=== PATIENT | male | born 1985 | race African-American/Black ===

== ENCOUNTER 2017-10-07 12:57 | Emergency (ER) | payer MEDICAID, OTHER ==
[~2017-10-07] VITALS: Ht 167.6 cm; Wt 79.0 kg
[2017-10-07 13:15] VITALS: BP 134/86
[2017-10-07] MEDS ORDERED: ACETAMINOPHEN 325MG TABLET PO ONE (15:15)
[2017-10-07] MEDS ORDERED: BACITRACIN ZINC OINT UDPKT TOP ONE (15:15)
== END 2017-10-07 15:31 | disposition home or self-care (01) ==
LOC: ER 13:27
DX: Z48.02 Encounter for removal of sutures (principal); J45.909 Unspecified asthma, uncomplicated; Z88.6 Allergy status to analgesic agent; X58.XXXD Exposure to other specified factors, subsequent encounter
CPT/HCPCS: 99283

== ENCOUNTER 2018-05-07 09:57 | Emergency (ER) | payer MEDICAID ==
[~2018-05-07] VITALS: Ht 167.6 cm; Wt 80.0 kg
[2018-05-07 11:02] VITALS: BP 126/72
[2018-05-07] MEDS ORDERED: ACETAMINOPHEN 325MG TABLET PO ONE (11:30)
== END 2018-05-07 12:55 | disposition home or self-care (01) ==
LOC: ER 12:51
DX: S63.591A Other specified sprain of right wrist, initial encounter (principal); H20.9 Unspecified iridocyclitis; H53.142 Visual discomfort, left eye; J45.909 Unspecified asthma, uncomplicated; Z88.6 Allergy status to analgesic agent; V00.131A Fall from skateboard, initial encounter; Y93.51 Activity, roller skating (inline) and skateboarding; Y92.89 Other specified places as the place of occurrence of the external cause; Y99.8 Other external cause status
CPT/HCPCS: 29125; 73130; 99284

== ENCOUNTER 2018-05-09 07:07 | Emergency (ER) | payer MEDICAID ==
[~2018-05-09] VITALS: Ht 170.2 cm; Wt 78.0 kg
[2018-05-09] MEDS ORDERED: ACETAMINOPHEN 325MG TABLET PO ONE (08:15)
[2018-05-09 09:58] VITALS: BP 135/88
== END 2018-05-09 10:05 | disposition home or self-care (01) ==
LOC: ER 08:40
DX: S90.31XA Contusion of right foot, initial encounter (principal); J45.909 Unspecified asthma, uncomplicated; V00.131A Fall from skateboard, initial encounter; Y93.89 Activity, other specified; Y92.89 Other specified places as the place of occurrence of the external cause; Y99.8 Other external cause status; Z88.6 Allergy status to analgesic agent
CPT/HCPCS: 73630; 99284

== ENCOUNTER 2019-09-21 08:58 | Emergency (ER) | payer MEDICAID ==
[~2019-09-21] VITALS: Ht 167.6 cm; Wt 81.0 kg
[2019-09-21] MEDS ORDERED: ACETAMINOPHEN 500MG TABLET PO ONE (10:30)
[2019-09-21 11:35] VITALS: BP 135/87
== END 2019-09-21 11:41 | disposition home or self-care (01) ==
LOC: ER 08:58
DX: S62.001A Unspecified fracture of navicular [scaphoid] bone of right wrist, initial encounter for closed fracture (principal); J45.909 Unspecified asthma, uncomplicated; W22.8XXA Striking against or struck by other objects, initial encounter; Y93.89 Activity, other specified; Y92.89 Other specified places as the place of occurrence of the external cause; Y99.8 Other external cause status; Z88.6 Allergy status to analgesic agent
CPT/HCPCS: 29125; 73130; 99283

== ENCOUNTER 2024-03-29 08:42 | Inpatient (IN) | payer MEDICAID ==
[~2024-03-29] VITALS: Ht 170.2 cm; Wt 78.0 kg
[2024-03-29 09:50] LABS: BASOPHILS % 0.7 % (0.0-2.0); EOSINOPHILS % 0.6 % (0.0-5.0); HEMATOCRIT. 43.1 % (42.0-52.0); HEMOGLOBIN. 14.9 g/dL (14.0-18.0); LYMPHOCYTES % 26.3 % (20.0-50.0); MEAN CORPUSCULAR HGB CONC 34.6 g/dL (31.0-37.0); MEAN CORPUSCULAR VOLUME 92.4 fL (80.0-94.0); MEAN PLATELET VOLUME 8.5 fl (7.4-10.4); MONOCYTES % 9.1 % (2.0-8.0); NEUTROPHILS % 63.3 % (40.0-76.0); PLATELET 161 x1000/uL (130-400); RED BLOOD CELL COUNT 4.66 mill/uL (4.7-6.1); RED CELL DISTRIBUTION WIDTH 12.5 % (11.6-14.6); WHITE BLOOD COUNT 3.4 x1000/uL (4.5-11.0)
[2024-03-29 09:58] LABS: CHLORIDE 99 mEq/L (98-107); POTASSIUM 3.6 mEq/L (3.5-5.1); SODIUM 137 mEq/L (136-145)
[2024-03-29 09:59] LABS: CARBON DIOXIDE 27 mEq/L (21-32); PROTHROMBIN TIME 11.4 sec (9.6-11.0)
[2024-03-29 10:00] LABS: CALCIUM 9.6 mg/dL (8.7-10.4)
[2024-03-29 10:04] LABS: CREATININE 0.8 mg/dL (0.6-1.3)
[2024-03-29 10:05] LABS: GLUCOSE 89 mg/dL (70-105); LACTIC ACID 3.3 mmol/L (0.4-2.0); UREA NITROGEN BLOOD 8 mg/dL (9-23)
[2024-03-29 10:06] LABS: ALANINE AMINOTRANSFERASE 76 IU/L (10-49); ALBUMIN 4.8 g/dL (3.2-4.8); ASPARTATE AMINOTRANSFERASE 128 IU/L (<34)
[2024-03-29 10:07] LABS: BILIRUBIN DIRECT 0.3 mg/dL (<=3.0); BILIRUBIN TOTAL 1.1 mg/dL (0.1-1.0); PROTEIN TOTAL 8.2 g/dL (6.0-8.3)
[2024-03-29 10:08] LABS: TROPONIN I HIGH SENSITIVITY < 4 ng/L (3.0-53)
[2024-03-29] MEDS: SODIUM CHLORIDE 0.9% 1000ML BAG (SEPSIS BOLUS) IV ONE (10:19)
[2024-03-29] MEDS: PIPERACILLIN/TAZO 3.375G/50ML 50 ML IV ONE (10:19)
[2024-03-29] MEDS: LORAZEPAM 2MG/ML INJ IV ONE ×2 (10:25→11:35)
[2024-03-29] MEDS: VANCOMYCIN 1G PREMIX 200 ML IV ONE (10:33)
[2024-03-29] MEDS ORDERED: DEXTROSE 50% WATER 50ML SYRINGE IV PRN (14:15)
[2024-03-29] MEDS ORDERED: ACETAMINOPHEN 325MG TABLET PO PRN (14:15)
[2024-03-29] MEDS ORDERED: IPRATROPIUM/ALBUTEROL 0.5-3(2.5)MG/3ML NEB HHN PRN (14:15)
[2024-03-29] MEDS: SODIUM CHLORIDE 0.9% 1,000 ML IV SCH (14:23)
[2024-03-29] MEDS ORDERED: LORAZEPAM 2MG/ML INJ IV PRN (14:45)
[2024-03-29] MEDS ORDERED: AMIODARONE HCL 900 MG in DEXT 5% WATER 500 ML IV PRN (14:45)
[2024-03-29] MEDS: FOLIC ACID 1 MG, THIAMINE HCL 100 MG, MVI, ADULT NO.1 10 ML in DEXTROSE 5% WATER 1,000 ML IV ONE (16:30)
[2024-03-29] MEDS: BLOOD SUGAR DIAGNOSTIC STRIP TEST SCH (17:51)
[2024-03-29] MEDS ORDERED: METRONIDAZOLE 500 MG PREMIX 100 ML IV SCH (18:00)
[2024-03-29 18:27] LABS: HEPATITIS B SURFACE ANTIGEN NEGATIVE (Negative)
[2024-03-29 18:48] LABS: HEPATITIS A AB IGM NEGATIVE (Negative); HEPATITIS B CORE AB IGM NEGATIVE (Negative)
[2024-03-29 18:49] LABS: HEPATITIS C AB NON REACTIVE (Neg) (Negative)
[2024-03-29] MEDS: CEFTRIAXONE 1GM/50ML 50 ML IV SCH (19:01)
[2024-03-29 20:00] VITALS: BP 136/84; RESP 16; TEMP 36.78072; O2SAT 100
[2024-03-29 22:01] LABS: HEMATOCRIT 38.8 % (42.0-52.0); HEMOGLOBIN 12.8 g/dL (14.0-18.0)
[2024-03-30 01:10] VITALS: BP 132/87; PULSE 88; RESP 19; TEMP 37.0296
[2024-03-30 02:03] LABS: CREATINE KINASE 506 IU/L (46-171)
[2024-03-30 02:04] LABS: CREATINE KINASE MB FRACTION 11.9 ng/mL (0.5-3.6); TROPONIN I HIGH SENSITIVITY 5 ng/L (3.0-53)
[2024-03-30] MEDS: METRONIDAZOLE 500 MG PREMIX 100 ML IV SCH (02:45)
[2024-03-30 07:42] LABS: BASOPHILS % 0.7 % (0.0-2.0); EOSINOPHILS % 1.4 % (0.0-5.0); HEMATOCRIT. 38.9 % (42.0-52.0); HEMOGLOBIN. 13.1 g/dL (14.0-18.0); LYMPHOCYTES % 24.3 % (20.0-50.0); MEAN CORPUSCULAR HEMOGLOBIN 31.2 pg (28.0-32.0); MEAN CORPUSCULAR HGB CONC 33.6 g/dL (31.0-37.0); MEAN CORPUSCULAR VOLUME 92.9 fL (80.0-94.0); MEAN PLATELET VOLUME 9.1 fl (7.4-10.4); MONOCYTES % 9.8 % (2.0-8.0); NEUTROPHILS % 63.8 % (40.0-76.0); PLATELET 139 x1000/uL (130-400); RED BLOOD CELL COUNT 4.19 mill/uL (4.7-6.1); RED CELL DISTRIBUTION WIDTH 12.1 % (11.6-14.6); WHITE BLOOD COUNT 3.8 x1000/uL (4.5-11.0)
[2024-03-30 08:00] VITALS: BP 119/73; PULSE 90; RESP 16; TEMP 36.78072; O2SAT 96
[2024-03-30 08:02] LABS: CARBON DIOXIDE 27 mEq/L (21-32); CHLORIDE 100 mEq/L (98-107); SODIUM 135 mEq/L (136-145)
[2024-03-30 08:03] LABS: CALCIUM 8.7 mg/dL (8.7-10.4)
[2024-03-30 08:05] LABS: CREATINE KINASE MB FRACTION 12.7 ng/mL (0.5-3.6)
[2024-03-30 08:06] LABS: ALANINE AMINOTRANSFERASE 49 IU/L (10-49); T4 FREE 1.46 ng/dL (0.89-1.76)
[2024-03-30 08:07] LABS: ALBUMIN 4.2 g/dL (3.2-4.8); BILIRUBIN DIRECT 0.5 mg/dL (<=3.0); THYROID STIMULATING HORMONE 2.66 uIU/mL (0.55-4.78)
[2024-03-30 08:08] LABS: ASPARTATE AMINOTRANSFERASE 75 IU/L (<34); BILIRUBIN TOTAL 1.8 mg/dL (0.1-1.0); CREATININE 0.8 mg/dL (0.6-1.3); GLUCOSE 83 mg/dL (70-105); TRIGLYCERIDE 103 mg/dL (0-150); UREA NITROGEN BLOOD 6 mg/dL (9-23)
[2024-03-30 08:09] LABS: CHOLESTEROL 244 mg/dL (<200); LDL CHOLESTEROL 183 mg/dL (5-100)
[2024-03-30 08:10] LABS: HDL CHOLESTEROL 55 mg/dL (>55)
[2024-03-30] MEDS: FOLIC ACID 1MG TABLET PO SCH (08:52)
[2024-03-30] MEDS: THIAMINE HCL 100MG TABLET PO SCH (08:52)
[2024-03-30] MEDS: PANTOPRAZOLE SODIUM 40 MG/VIAL IV SCH (09:06)
[2024-03-30] MEDS: ASPIRIN 81MG TABLET PO SCH (09:27)
[2024-03-30] MEDS: POTASSIUM CHLORIDE 40 MEQ in DEXT 5% WATER 250 ML IV ONE (10:47)
[2024-03-30 12:00] VITALS: BP 145/84; PULSE 93; RESP 20; TEMP 36.3918; O2SAT 99
[2024-03-30 13:37] LABS: HEMATOCRIT 39.6 % (42.0-52.0); HEMOGLOBIN 12.8 g/dL (14.0-18.0)
[2024-03-30 14:34] LABS: CLARITY URINE CLEAR (CLEAR); COLOR URINE YELLOW (YELLOW); GLUCOSE URINE NEGATIVE (NEGATIVE); KETONES URINE NEGATIVE (NEGATIVE); LEUKOCYTE ESTERASE URINE NEGATIVE (NEGATIVE); NITRITE URINE NEGATIVE (NEGATIVE); OCCULT BLOOD URINE NEGATIVE (NEGATIVE); PROTEIN URINE NEGATIVE (NEGATIVE); SPECIFIC GRAVITY URINE 1.007 (1.005-1.030)
[2024-03-30 14:48] LABS: T4 FREE 1.29 ng/dL (0.89-1.76)
[2024-03-30 15:15] LABS: *AMPHETAMINES SCREEN URINE NEGATIVE (NEGATIVE); *BARBITURATES SCREEN URINE NEGATIVE (NEGATIVE); *BENZODIAZEPINES SCREEN URINE NEGATIVE (NEGATIVE); *COCAINE SCREEN URINE NEGATIVE (NEGATIVE); METHADONE URINE SCREEN NEGATIVE (NEGATIVE); OPIATES URINE SCREEN NEGATIVE (NEGATIVE)
[2024-03-30 15:16] LABS: CANNABINOID URINE SCREEN PRESUMPTIVE POSITIVE (NEGATIVE); ECSTASY MDMA SCREEN URINE NEGATIVE (NEGATIVE); PHENCYCLIDINE URINE SCREEN NEGATIVE (NEGATIVE)
[2024-03-30 16:00] VITALS: BP 138/70; PULSE 90; RESP 19; TEMP 36.61404; O2SAT 98
[2024-03-30 17:33] LABS: CREATINE KINASE 411 IU/L (46-171)
[2024-03-30 17:34] LABS: CREATINE KINASE MB FRACTION 10.3 ng/mL (0.5-3.6)
[2024-03-30 17:43] LABS: TROPONIN I HIGH SENSITIVITY < 4 ng/L (3.0-53)
[2024-03-30 20:00] VITALS: BP 133/95; PULSE 85; RESP 18; TEMP 36.72516; O2SAT 99
[2024-03-31] VITALS: BP 147/95; PULSE 68; RESP 19; TEMP 36.9474; O2SAT 97
[2024-03-31 00:24] LABS: CREATINE KINASE 385 IU/L (46-171)
[2024-03-31 00:36] LABS: TROPONIN I HIGH SENSITIVITY < 4 ng/L (3.0-53)
[2024-03-31 04:00] VITALS: BP 137/76; PULSE 79; RESP 19; TEMP 36.22512; O2SAT 99
[2024-03-31 08:00] VITALS: BP 147/98; PULSE 85; RESP 18; TEMP 36.28068; O2SAT 100
[2024-03-31 08:58] VITALS: BP 147/98; PULSE 85; TEMP 97.3; O2SAT 100
[2024-03-31 11:47] LABS: CHLORIDE 98 mEq/L (98-107); POTASSIUM 3.6 mEq/L (3.5-5.1); SODIUM 135 mEq/L (136-145)
[2024-03-31 11:48] LABS: CARBON DIOXIDE 28 mEq/L (21-32)
[2024-03-31 11:51] LABS: CREATINE KINASE MB FRACTION 10.5 ng/mL (0.5-3.6)
[2024-03-31 11:53] LABS: CREATININE 0.8 mg/dL (0.6-1.3); GLUCOSE 122 mg/dL (70-105)
[2024-03-31 11:54] LABS: CREATINE KINASE 368 IU/L (46-171)
[2024-03-31 11:57] LABS: TROPONIN I HIGH SENSITIVITY < 4 ng/L (3.0-53); UREA NITROGEN BLOOD < 5 mg/dL (9-23)
== END 2024-03-31 10:45 | disposition home or self-care (01) | DRG 720 ==
LOC: ER 08:42 → EDBEDREQSVC 11:36 → 5WST 13:11 → EDBEDREQ 13:13 → 7EST 03-30 01:04
PROVIDERS: ADMIT Internal Medicine; ATTEND Internal Medicine
DX: A41.9 Sepsis, unspecified organism (principal); I85.11 Secondary esophageal varices with bleeding; K26.4 Chronic or unspecified duodenal ulcer with hemorrhage; K74.60 Unspecified cirrhosis of liver; E87.6 Hypokalemia; K76.0 Fatty (change of) liver, not elsewhere classified; B15.9 Hepatitis A without hepatic coma; F17.210 Nicotine dependence, cigarettes, uncomplicated; F10.139 Alcohol abuse with withdrawal, unspecified; J45.909 Unspecified asthma, uncomplicated; R65.20 Severe sepsis without septic shock; I48.91 Unspecified atrial fibrillation; E78.5 Hyperlipidemia, unspecified; I25.2 Old myocardial infarction; Z59.00 Homelessness unspecified; Z88.6 Allergy status to analgesic agent; Y90.9 Presence of alcohol in blood, level not specified
CPT/HCPCS: 36415; 71045; 76700; 80048; 80061; 80076; 80305; 81003; 82550; 82553; 82962; 83036; 83605; 83735; 83880; 84100; 84145; 84439; 84443; 84484; 85014; 85018; 85025; 85379; 86705; 86709; 87340; 93005; 93306; 99291; J0696; J2060; J2470; J2543; J3370; J3411; J3480; J3490; J7030; J7060; J7070